=== PATIENT | female | born 1960 ===

== ENCOUNTER 2018-01-02 12:55 | Outpatient (CLI) | payer MEDICAID ==
--- NOTE | 2018-01-02 13:52 | Mammography Report ---
BILATERAL DIGITAL DIAGNOSTIC MAMMOGRAM with CAD and RIGHT BREAST ULTRASOUND: 01/02/18 CLINICAL: Right breast lump felt by her doctor. COMPARISON:None. FINDINGS: The breasts are almost entirely fatty.No mass, architectural distortion or suspicious calcifications . Normal fat underlies a right lower inner palpable marker. No mammographic abnormality at the marker. Ultrasound of the right breast in the area of the palpable marker demonstrated normal fatty structures. No mass, cyst or shadowing. IMPRESSION: Negative mammogram and negative right breast ultrasound. BI-RADS CATEGORY: 1 - - Negative RECOMMENDATION: Clinical follow-up of the palpable area and routine mammographic screening in one year. ACR BI-RADS MAMMOGRAPHIC CODES: 0 = Needs additional imaging evaluation; 1 = Negative; 2 = Benign; 3 = Probably benign; 4 = Suspicious; 5 = Malignant; 6 = Known biopsy-proven malignancy COMMENT: 1. Dense breast tissue, i.e., adenosis, fibrocystic changes, etc., may obscure an underlying neoplasm. 2. Approximately 10% of cancers are not detected with mammography. 3. A negative mammography report should not delay biopsy if a clinically suspicious mass is present. COMMENT: Patient follow-up letters are generated by our [employer] application.
== END 2018-01-02 12:56 | disposition home or self-care (01) ==
LOC: SPVWC 12:55
PROVIDERS: ATTEND Obstetrics & Gynecology
DX: R92.8 Other abnormal and inconclusive findings on diagnostic imaging of breast (principal)
CPT/HCPCS: 77066